=== PATIENT | male | born 1990 | race African-American/Black ===

== ENCOUNTER 2020-07-07 08:07 | Emergency (ER) | payer MEDICAID ==
[~2020-07-07] VITALS: Ht 172.7 cm; Wt 79.4 kg
[2020-07-07 08:12] VITALS: Ht 172.7 cm; Wt 79.4 kg
[2020-07-07 09:13] VITALS: BP 134/90
== END 2020-07-07 09:13 ==
LOC: ED 08:07
DX: S61.011A Laceration without foreign body of right thumb without damage to nail, initial encounter (principal); Y04.0XXA Assault by unarmed brawl or fight, initial encounter; Y93.89 Activity, other specified; Y92.89 Other specified places as the place of occurrence of the external cause; Y99.8 Other external cause status
CPT/HCPCS: 90715; J2001

== ENCOUNTER 2020-07-07 08:07 | Emergency (ER) | payer OTHER | END 2020-07-07 09:13 | LOC: ED 08:07 | DX: Z02.89 Encounter for other administrative examinations (principal) ==